=== PATIENT | female | born 1940 | race Caucasian/White ===

== ENCOUNTER 2021-06-24 12:52 | Emergency (ER) | payer MEDICARE ==
[2021-06-24 13:18] VITALS: BP 133/63; PULSE 83
--- NOTE | 2021-06-24 14:00 | EDM.PDOC ---
ED HPI GENERAL MEDICAL PROBLEM - General Chief Complaint: Cardiovascular Problem Stated Complaint: FEVER LOW BLOOD PRESSURE Time Seen by Provider: 06/24/21 13:30 Source of Information: Reports: Patient, Family History Limitations: Reports: No Limitations - History of Present Illness INITIAL COMMENTS - FREE TEXT/NARRATIVE: 81-year-old female brought in by family from a local assisted living with 2 days of cough, this morning she had a low-grade fever and a "low pulse". Several checks found a pulse in the 30s and 40s so she was sent in. They did recently start some allergy medication. She is blowing her nose a lot, having an occasional cough but otherwise feels fine. Onset: Gradual Duration: Day(s): (Cough and cold symptoms for 3 days) Associated Symptoms: Reports: Cough, Fever/Chills (Low-grade fever according to the nursing staff), Other (Productive sputum). Denies: Shortness of Breath - Related Data Allergies Allergy/AdvReac Type Severity Reaction Status Date / Time No Known Allergies Allergy Verified 09/08/15 09:27 Home Meds: Home Meds Diclofenac Sodium [Diclofenac Sodium ER] 100 mg PO DAILY PRN 09/06/15 [History] Donepezil HCl 10 mg PO BEDTIME 09/06/15 [History] Triamcinolone Acetonide [Triamcinolone Acetonide 0.1% Crm] 1 gm TOP TID 09/06/15 [History] Triamcinolone Acetonide [Triamcinolone Acetonide 0.1% Oint] 80 gm .XX BID #1 tube 09/07/15 [Rx] Past Medical History HEENT History: Reports: None Cardiovascular History: Reports: Stents, Other (See Below) Other Cardiovascular History: three stents placed Respiratory History: Reports: None Gastrointestinal History: Reports: None Genitourinary History: Reports: None 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: Musculoskeletal History: Reports: None Neurological History: Reports: None Psychiatric History: Reports: None, Dementia Endocrine/Metabolic History: Reports: None Oncologic (Cancer) History: Reports: None Dermatologic History: Reports: None - Infectious Disease History Infectious Disease History: Reports: Chicken Pox, Measles, Mumps Social & Family History - Tobacco Use Tobacco Use Status *Q: Never Tobacco User - Caffeine Use Caffeine Use: Reports: Coffee - Recreational Drug Use Recreational Drug Use: No ED ROS GENERAL - Review of Systems Review Of Systems: See Below Constitutional: Reports: Fever, Malaise HEENT: Reports: Other (Persistent runny nose). Denies: Throat Pain Respiratory: Reports: Cough, Sputum. Denies: Shortness of Breath Cardiovascular: Denies: Chest Pain, Palpitations GI/Abdominal: Reports: No Symptoms Skin: Reports: No Symptoms Neurological: Reports: No Symptoms Psychiatric: Reports: No Symptoms ED EXAM, GENERAL - Physical Exam Exam: See Below Exam Limited By: No Limitations General Appearance: Alert, No Apparent Distress Eye Exam: Bilateral Eye: Normal Inspection Nose: Clear Rhinorrhea Throat/Mouth: Normal Inspection Head: Atraumatic Neck: Supple, Non-Tender Respiratory/Chest: Wheezing (Diffuse mild expiratory wheezing and a few scattered rhonchi are present) GI/Abdominal: Soft, Non-Tender Neurological: Alert, Oriented, No Motor/Sensory Deficits Psychiatric: Normal Affect, Normal Mood Skin Exam: Warm, Dry Course - Vital Signs Last Recorded V/S: Last Vital Signs Temp 97.6 F 06/24/21 13:32 Pulse 83 06/24/21 13:32 Resp 13 06/24/21 13:32 BP 133/63 06/24/21 13:32 Pulse Ox 94 L 06/24/21 13:32 - Re-Assessments/Exams Free Text/Narrative Re-Assessment/Exam: 06/24/21 14:27 Patient was placed on cardiac monitoring and was having fairly frequent PVCs, at times bigeminy. This was likely the source of the palpable low pulse, they were not picking up the PVCs. This is been a chronic problem for her in the past. She was on metoprolol but did not tolerate it, and now recently has been started on Claritin which may be increasing the amount of PVCs. No further work-up is needed, she will be discharged on some Zithromax and encouraged to continue with cold medication as needed and recheck in 2 to 3 days if not improving satisfactorily. As long as her neurologic status is good, she is not short of breath, and her blood pressure is stable she should be able to give this a few more days as well as take the antibiotic. Departure - Departure Time of Disposition: 14:14 [facility]position[facility] [place] [facility] [place] [id number] Reason for Transfer *Q: Other Clinical Impression: Bronchitis Instructions: Acute Bronchitis, Adult Referrals: Rosa Maria Hernandez DO [Primary Care Provider] - Forms: ED Department Discharge Care Plan Goals: Continue your current medications and take Zithromax as prescribed. Return in 2 to 3 days if not improving satisfactorily. Return anytime if worsening such as difficulty breathing, persistent chest pain or other concerns. Sepsis Event Note (ED) - Evaluation Sepsis Screening Result: No Definite Risk - Focused Exam Vital Signs: Vital Signs Temp Pulse Resp BP Pulse Ox 06/24/21 13:32 97.6 F 83 13 133/63 94 L 06/24/21 13:17 97.6 F 83 13 133/63 94 L
== END 2021-06-24 14:14 ==
LOC: JP.ED 12:52
DX: J40 Bronchitis, not specified as acute or chronic (principal)
CPT/HCPCS: 99283